=== PATIENT | male | born 1990 | race Caucasian/White ===

== ENCOUNTER 2018-06-11 22:42 | Emergency (ER) | payer SELFPAY | END 2018-06-12 01:02 | disposition left against medical advice (07) | LOC: FTE 06-12 01:02 | DX: Z53.21 Procedure and treatment not carried out due to patient leaving prior to being seen by health care provider (principal) ==

== ENCOUNTER 2018-06-11 23:28 | Emergency (ER) | payer SELFPAY | END 2018-06-12 02:05 | disposition left against medical advice (07) | LOC: FTE 23:28 | DX: Z53.21 Procedure and treatment not carried out due to patient leaving prior to being seen by health care provider (principal) ==